=== PATIENT | male | born 1950 | race Caucasian/White ===

== ENCOUNTER 2020-07-14 17:22 | Observation (INO) | payer MEDICARE, OTHER ==
[~2020-07-14] VITALS: Ht 185.4 cm; Wt 116.0 kg
[2020-07-14] MEDS ORDERED: ASPIRIN CHEWABLE 81 MG TABLET. PO ONE (17:45)
--- NOTE | 2020-07-14 17:49 | EKG ---
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
[2020-07-14] MEDS ORDERED: ASPIRIN ENTERIC COATED 81 MG TABLET.DR. PO ONE (17:50)
[2020-07-14 17:57] LABS: BASO # 0.1 x10^3/uL (0.0-0.2); BASO % 1 % (0-3); EOS # 0.2 x10^3/uL (0.0-0.7); EOS % 2 % (0-3); HEMATOCRIT 46.3 % (39.0-53.0); HEMOGLOBIN 15.2 g/dL (13.0-17.5); LYMPH # 2.7 x10^3/uL (1.0-4.8); LYMPH % 34 % (24-48); MEAN CORPUSCULAR HEMOGLOBIN 31 pg (25-35); MEAN CORPUSCULAR HGB CONC 33 g/dL (31-37); MEAN CORPUSCULAR VOLUME 93 fL (79-100); MONO # 0.5 x10^3/uL (0.0-1.1); MONO % 6 % (0-9); NEUT # 4.5 x10^3uL (1.8-7.7); NEUT % 56 % (31-73); PLATELET COUNT 194 x10^3/uL (140-400); RED BLOOD COUNT 4.99 x10^6/uL (4.30-5.70); RED CELL DISTRIBUTION WIDTH 13.7 % (11.5-14.5)
--- NOTE | 2020-07-14 17:57 | RAD ---
AP chest. HISTORY: Chest pain AP view was taken of the chest. Heart is normal in size with evidence of prior bypass. There are no a cute infiltrates. There is no effusion. IMPRESSION: 1. No acute chest disease. Electronically signed by: Kennedy Hernandez MD (07/14/2020 5:55 PM) [facility]
[2020-07-14 18:07] LABS: GFR 73.7; POTASSIUM 3.7 mmol/L (3.5-5.1)
--- NOTE | 2020-07-14 18:12 | PHYS DOC ---
General Adult EDM: Chief Complaint: CHEST PAIN HPI: HPI: Patient is a 70-year-old male who presents with chest pain that started at 5 PM tonight. Patient describes pain as left-sided, stabbing,radiating to his back. Patient states he was sitting working on his computer when the pain started. Patient reports taking 1 nitro with a little bit of relief. Patient has a history of bypass, and has had 6 stents. Patient denies shortness of breath, nausea /vomiting, dizziness. (FARZANA SARAH APRN) Review of Systems: Review of Systems: Constitutional: Denies fever or chills Eyes: Denies change in visual acuity HENT: Denies nasal congestion or sore throat Respiratory: Denies cough or shortness of breath Cardiovascular: Denies chest pain or edema GI: Denies abdominal pain, nausea, vomiting, bloody stools or diarrhea : Denies dysuria Musculoskeletal: Denies back pain or joint pain Integument: Denies rash Neurologic: Denies headache, focal weakness or sensory changes Endocrine: Denies polyuria or polydipsia Lymphatic: Denies swollen glands Psychiatric: Denies depression or anxiety (FARZANA SARAH APRN) Current Medications: Current Meds: Current Medications Medications (Trade) Dose Ordered Sig/Brandt Start Time Stop Time Status Last Admin Dose Admin Aspirin (Aspirin Chewable) 324 mg 1X ONCE 07/14/20 17:45 07/14/20 18:00 DC 07/14/20 17:52 324 MG Aspirin (Aspirin Enteric Coated) 81 mg STK-MED ONCE 07/14/20 17:50 07/14/20 17:50 DC (FARZANA SARAH APRN) Allergies: Allergies: Allergies Coded Allergies Type Severity Reaction Last Updated Verified acetaminophen Allergy Unknown 07/14/20 Yes azithromycin Allergy Unknown 07/14/20 Yes chlorpheniramine Allergy Unknown 07/14/20 Yes oxymetazoline Allergy Unknown 07/14/20 Yes pheniramine Allergy Unknown 07/14/20 Yes phenylephrine Allergy Unknown 07/14/20 Yes pseudoephedrine Allergy Unknown 07/14/20 Yes (FARZANA SARAH APRN) Physical Exam: PE: Constitutional: Well developed, well nourished, no acute distress, non-toxic appearance. [] HENT: Normocephalic, atraumatic, bilateral external ears normal, oropharynx moist, no oral exudates, nose normal. [] Eyes: PERRLA, EOMI, conjunctiva normal, no discharge. [] Neck: Normal range of motion, no tenderness, supple, no stridor. [] Cardiovascular:Heart rate regular rhythm, no murmur [] Lungs & Thorax: Bilateral breath sounds clear to auscultation [] Abdomen: Bowel sounds normal, soft, no tenderness, no masses, no pulsatile masses. [] Skin: Warm, dry, no erythema, no rash. [] Back: No tenderness, no CVA tenderness. [] Extremities: No tenderness, no cyanosis, no clubbing, ROM intact, no edema. [] Neurologic: Alert and oriented X 3, normal motor function, normal sensory function, no focal deficits noted. [] Psychologic: Affect normal, judgement normal, mood normal. [] (FARZANA SARAH APRN) Current Patient Data: Labs: Laboratory Tests Test 07/14/20 17:35 Sodium Level 140 mmol/L (136-145) Potassium Level 3.7 mmol/L (3.5-5.1) Chloride Level 103 mmol/L (98-107) Carbon Dioxide Level 27 mmol/L (21-32) Anion Gap 10 (6-14) Blood Urea Nitrogen 17 mg/dL (8-26) Creatinine 1.0 mg/dL (0.7-1.3) Estimated GFR (Cockcroft-Gault) 73.7 BUN/Creatinine Ratio 17 (6-20) Glucose Level 155 mg/dL (70-99) H Calcium Level 9.0 mg/dL (8.5-10.1) Total Bilirubin Pending Aspartate Amino Transferase (AST) Pending Alanine Aminotransferase (ALT) Pending Alkaline Phosphatase Pending NF-Bkj-U-Type Natriuretic Peptide Pending Total Protein Pending Albumin Pending Albumin/Globulin Ratio Pending (FARZANA SARAH APRN) EKG: EKG: Sinus rhythm. Heart rate 65 bpm. EKG read at 1800 (FARZANA SARAH APRN) Radiology/Procedures: Radiology/Procedures: []AP chest. HISTORY: Chest pain AP view was taken of the chest. Heart is normal in size with evidence of prior bypass. There are no acute infiltrates. There is no effusion. IMPRESSION: 1. No acute chest disease. Electronically signed by: Kennedy Hernandez MD (07/14/2020 5:55 PM) [facility] (FARZANA SARAH APRN) Heart Score: Risk Factors: Risk Factors: DM, Current or recent (<one month) smoker, HTN, HLP, family history of CAD, obesity. Risk Scores: Score 0 - 3: 2.5% MACE over next 6 weeks - Discharge Home Score 4 - 6: 20.3% MACE over next 6 weeks - Admit for Clinical Observation Score 7 - 10: 72.7% MACE over next 6 weeks - Early Invasive Strategies (FARZANA SARAH APRN) Course & Med Decision Making: Course & Med Decision Making Pertinent Labs and Imaging studies reviewed. (See chart for details) [] 70-year-old male who presents with chest pain that started at 5 PM tonight. Patient describes the pain as a left-sided, stabbing pain that goes through to his back. Patient reports taking 1 nitro at home before before coming into the emergency room. Patient did have some relief from pain after taking the nitro. Patient refuses to take any more nitro. "I am nervous it will mask the pain and I wont know I am having it". EKG ordered to rule out MD or cardiac changes. Chest x-ray ordered. 324 of aspirin given. Chest xray shows No acute chest disease. We will admit patient to hospital for observation. Patient agrees with this plan. Patient reporting increase in chest pain. Pain is 7 out of 10. Morphine ordered for pain control. Repeat EKG ordered to rule out acute MD. Repeat EKG shows no acute abnormalities. (FARZANA SARAH APRN) Dragon Disclaimer: Dragon Disclaimer: This electronic medical record was generated, in whole or in part, using a voice recognition dictation system. (FARZANA SARAH APRN) Departure Departure: Referrals: MARCO MANNING (PCP) Attending Signature Attending Signature I have participated in the care of this patient and I have reviewed and agree with all pertinent clinical information above including history, exam, and recommendations. (LUIS YEH MD) Dragon Disclaimer This chart was dictated in whole or in part using Voice Recognition software in a busy, high-work load, and often noisy Emergency Department environment. It may contain unintended and wholly unrecognized errors or omissions. (LUIS YEH MD) FARZANA SARAH APRN Jul 14, 2020 18:12 LUIS YEH MD Jul 15, 2020 18:09
[2020-07-14 18:19] LABS: ALBUMIN 3.5 g/dL (3.4-5.0); TOTAL BILIRUBIN 0.4 mg/dL (0.2-1.0)
[2020-07-14 18:20] LABS: BILIRUBIN,URINE NEG (NEG); CLARITY,URINE CLEAR; COLOR,URINE YELLOW; GLUCOSE,URINE NEG (NEG); NITRITE,URINE NEG (NEG); UROBILINOGEN,URINE 0.2 mg/dL (0.2 mg/dL)
[2020-07-14 18:21] LABS: BACTERIA,URINE 0 /HPF (0-FEW); RBC,URINE RARE /HPF (0-2); SQUAMOUS EPITHELIAL CELL,UR MANY /LPF; WBC,URINE RARE /HPF (0-4)
[2020-07-14] MEDS ORDERED: MORPHINE SULFATE 4 MG/ML DISP.SYRIN. IV ONE (21:15)
--- NOTE | 2020-07-14 21:38 | EKG ---
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
[2020-07-14] MEDS: NITROGLYCERIN SUBLINGUAL 0.4 MG BOTTLE OF 25. SL PRN ×2 (22:33→22:47)
[2020-07-14] MEDS ORDERED: NITROGLYCERIN SUBLINGUAL 0.4 MG BOTTLE OF 25. SL ONE (22:33)
--- NOTE | 2020-07-14 22:42 | NUR ---
The patient, TRINO SIMPSON, 70 y/o, M admitted by MIR WARREN MD, was given written information regarding hospital policies, unit procedures and contact persons. Valuables were checked and VS taken please see chart.
[2020-07-14 22:57] VITALS: BP 128/90
[2020-07-14] MEDS ORDERED: CETI10TA16 PO (23:17)
[2020-07-14] MEDS ORDERED: ASPI-630 PO (23:17)
[2020-07-14] MEDS ORDERED: LACT1CAP29 PO (23:17)
[2020-07-14] MEDS ORDERED: ATOR40TA59 PO (23:17)
[2020-07-14] MEDS ORDERED: METO-239 PO (23:17)
[2020-07-14] MEDS ORDERED: FINA5TAB4 PO (23:17)
[2020-07-14] MEDS ORDERED: TAMS0.4C97 PO (23:17)
[2020-07-14] MEDS ORDERED: CLOP75TA57 PO (23:17)
[2020-07-14] MEDS ORDERED: SAW/1TAB2 PO (23:17)
[2020-07-14] MEDS ORDERED: GLUC-11 PO (23:17)
[2020-07-15] MEDS ORDERED: TAMSULOSIN 0.4 MG CAP.ER.24H. PO SCH
[2020-07-15] MEDS ORDERED: LACTOBACILLUS RHAMNOSUS GG 1 CAPSULE. PO SCH
[2020-07-15] MEDS ORDERED: ATORVASTATIN CALCIUM 20 MG TABLET PO SCH
[2020-07-15] MEDS ORDERED: ASPIRIN CHEWABLE 81 MG TABLET. PO SCH
[2020-07-15] MEDS ORDERED: FINASTERIDE 5 MG TABLET. PO SCH
[2020-07-15] MEDS ORDERED: CLOPIDOGREL BISULFATE 75 MG TABLET PO SCH
[2020-07-15 03:53] VITALS: BP 148/91
[2020-07-15 06:29] VITALS: BP 145/93
[2020-07-15] MEDS: NITROGLYCERIN SUBLINGUAL 0.4 MG BOTTLE OF 25. SL PRN ×2 (07:17→07:59)
[2020-07-15] MEDS ORDERED: MORPHINE SULFATE 2 MG/ML DISP.SYRIN. IV ONE (08:30)
[2020-07-15] MEDS ORDERED: METOPROLOL SUCC 24HR ER 25 MG TAB.ER.24H. PO SCH (09:00)
[2020-07-15] MEDS ORDERED: CETIRIZINE HCL 10 MG TABLET PO SCH (09:00)
--- NOTE | 2020-07-15 09:30 | NUR ---
Nursing note: Pt c/o chest pain rated 7/10 and 8/10 when taking a deep breath. Pt requested nitro. Nitro given x2 with no relief. Dr. Obregon notified and orders received for Morphine 2mg x1. Morphine administered. Pt stated pain dropped down to 6/10. Pt VS stable and pt does not appear to be bothered by the pain. He is currently sitting quietly in his bed watching TV. Will continue to monitor.
--- NOTE | 2020-07-15 10:49 | HP ---
ADMIT DATE: 07/14/2020 ATTENDING PHYSICIAN: Dr. Mir Warren CHIEF COMPLAINT: Chest pressure. HISTORY OF PRESENT ILLNESS: The patient is a 70-year-old gentleman, very active and appears much younger than the stated age. He noticed a new onset of nonexertional chest pain started at 5:00 p.m. on the date of admission. The left sided stabbing radiating to the back. He was sitting work in the computer, he took one nitroglycerin. He has had a longstanding history of coronary artery bypass. He has had 6 stents, most recently 3 years ago, he was in [place], [place], he had a cardiac catheterization and balloon angioplasty and placement of 2 stents at that time. He was admitted and the first set of cardiac enzymes showed no evidence of coronary ischemia. He is admitted for further evaluation. He sees a service parts driver at [facility], Dr. Ebenezer Cho. He denied any recent COVID exposure, nausea, shortness of breath. He denies any nonsteroidal anti-inflammatory use. He does not drink alcohol. He does not smoke. PAST MEDICAL HISTORY: Significant for coronary artery disease with previous multiple stents, coronary artery bypass and graft, degenerative arthritis and hyperlipidemia. CURRENT MEDICATIONS: Include aspirin 81 mg daily, Plavix, Zyrtec, Lipitor, finasteride, glucosamine chondroitin sulfate, lactobacillus, metoprolol, saw palmetto and Flomax 0.4 mg daily. SOCIAL HISTORY: He is a nonsmoker, nondrinker. ALLERGIES: Include ACETAMINOPHEN, ZITHROMAX, CHLORPHENIRAMINE, OXYMETAZOLINE, PHENYLEPHRINE, PSEUDOEPHEDRINE. Exact reaction is unclear, most likely hypertension. FAMILY HISTORY: Noncontributory. REVIEW OF SYSTEMS: The patient is semi-retired. 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 He is , 4 children who are alive and healthy. The rest of detailed review of systems as the patient turned to be negative. PHYSICAL EXAMINATION: GENERAL: When I saw him, this is a pleasant gentleman who appears much younger than the stated age. VITAL SIGNS: Her blood pressure initially was 145/93 mmHg, pulse 71 and regular, temperature 98.3 degrees Fahrenheit, oxygen saturation 96% on room air. HEENT: Head is without trauma. Pupils are reactive. Sclerae nonicteric. Oropharynx is clear. NECK: Supple, no bruits. LUNGS: Actually clear. CARDIOVASCULAR: Irregular heart tones. No gallops. Peripheral pulses are palpable and full. ABDOMEN: Soft, scaphoid, nontender, no organomegaly. Bowel sounds are hypoactive. EXTREMITIES: Showed no cyanosis or edema. NEUROLOGIC: Function focally intact. SKIN: Warm and dry. NEUROLOGIC: Well Driller were symmetrical and intact. PERTINENT LABORATORY AND X-RAY STUDIES: Chest x-ray on admission showed no acute changes. EKG showed some PVCs, but no acute changes identified. PERTINENT LABORATORY STUDIES: The first set of cardiac enzymes were negative for coronary ischemia. Hemoglobin is 15.2 g/dL with white count of 8000. Electrolytes, BUN and creatinine within normal range. Nonfasting blood sugar 150. The first set of cardiac enzymes was nonischemic. ASSESSMENT: 1. A 70-year-old gentleman with atypical chest pain, noncardiac in nature, is admitted for further evaluation. 2. Known history of coronary artery disease with previous multiple stents. 3. Hyperlipidemia. 4. Degenerative arthritis. PLAN: 1. Observation status. 2. Telemetry monitoring. 3. Serial cardiac enzymes. 4. Continue home meds. MIR WARREN MD DR: LOCO/florin JOB#: [id number] / [id number] Mariluz Fregoso MD
--- NOTE | 2020-07-15 10:55 | DS ---
DATE OF DISCHARGE: 07/15/2020 ATTENDING PHYSICIAN: Dr. Mir Warren FINAL DISCHARGE DIAGNOSES: 1. Atypical chest pain, coronary ischemia ruled out. 2. Known coronary artery disease with previous bypass surgery and multiple stents. 3. Hyperlipidemia. 4. Degenerative arthritis. HISTORY AND PHYSICAL: This pleasant 70-year-old gentleman with a known history of coronary artery disease, was admitted with atypical chest pain. He was admitted for evaluation and monitoring and serial cardiac enzymes. He is a nonsmoker, nondrinker, and has been taking his medication. 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 He tells me his last cardiac workup was 3 years ago in [place], [place] with a cardiac catheterization and stents at that time. In the ED, the first set of cardiac enzymes was negative. Chest x-ray was clear. His vital signs were quite stable. PHYSICAL EXAMINATION: Please see the dictated note. PERTINENT LABORATORY AND X-RAY STUDIES: Three sets of cardiac enzymes negative for coronary ischemia. Electrolytes all within normal range. Creatinine 1.0 mg percent, potassium 3.7 mEq. Hemoglobin 15.2 g/dL with white count of 8000. COURSE IN THE HOSPITAL: The patient was admitted. His serial enzymes were entirely negative for coronary ischemia. We continued the home medication. Diet was advanced. He still has some residual chest wall pain, which was reproducible. I offered some prescriptions and pain meds, he declined. I offered to have Cardiology see him, but it will be after the weekend. He will call his regular heat treat technician in the [facility] system to have what I recommend is a nuclear medicine stress test at some time. He understands and has a significant insight and he will accomplish this after the holidays. On the next hospital day, the patient's vital signs were quite stable. His blood pressure was 145/93 mmHg, pulse 71 and regular, temperature 98.3 degrees Fahrenheit, and oxygen saturation 95% on room air. At this time, he is discharged home. There are no changes on his medicine. He will continue his aspirin and Plavix as scheduled. Lipitor 40 mg daily, Zyrtec, finasteride 5 mg daily, glucosamine and chondroitin sulfate, lactobacillus, metoprolol, saw palmetto and Flomax 0.4 mg daily. His prognosis is fair. The patient was then discharged from our hospital in stable condition with explicit instructions and followup care. MIR WARREN MD DR: LOCO/florin JOB#: [id number] / [id number] Mariluz Fregoso MD
[2020-07-15 11:08] VITALS: BP 147/91
--- NOTE | 2020-07-15 11:18 | PDOC2 ---
CONSULT DOS: DATE: 07/15/20 TIME: 11:17 Reason for Consult: Chest pain Referring Physician: Dr. Colvin Chief Complaint Chest pain Source: Chart review, Patient History of Present Illness 70-year-old male with history of coronary artery disease s/p CABG 8 years ago and PCI/stents placement 3 years ago who is currently being followed by [facility] cardiology presented with retrosternal chest pain that he described as sharp and stabbing in nature radiating to back not associated with shortness of breath. He denied any nausea, vomiting, orthopnea/PND, palpitations or syncope. He tried sublingual nitroglycerin at home with only minimal relief. The pain initially was 8/10 severity and is currently at 5/10 severity. Past Medical History Coronary artery disease s/p CABG and PCI/stents thereafter Hypertension Hyperlipidemia Osteoarthritis Past Surgical History Coronary artery bypass surgery Family History Positive for premature coronary disease Social History Patient denied any smoking or drug use and admitted to social intake of alcohol Current Medications Current Medications Aspirin (Aspirin Chewable) 324 mg 1X ONCE PO Last administered on 07/14/20at 17:52; Start 07/14/20 at 17:45; Stop 07/14/20 at 18:00; Status DC Aspirin (Aspirin Enteric Coated) 81 mg STK-MED ONCE PO ; Start 07/14/20 at 17:50; Stop 07/14/20 at 17:50; Status DC Morphine Sulfate (Morphine 4mg Syringe) 4 mg 1X ONCE IV Last administered on 07/14/20at 21:17; Start 07/14/20 at 21:15; Stop 07/14/20 at 22:04; Status DC Nitroglycerin (Nitrostat) 0.4 mg STK-MED ONCE SL ; Start 07/14/20 at 22:33; Stop 07/14/20 at 22:33; Status DC Nitroglycerin (Nitrostat) 0.4 mg PRN Q5MIN PRN SL CHEST PAIN Last administered on 07/15/20at 07:59; Start 07/14/20 at 22:45 Aspirin (Aspirin Chewable) 81 mg HS PO Last administered on 07/14/20at 23:55; Start 07/15/20 at 00:00 Cetirizine HCl (ZyrTEC) 10 mg DAILY PO Last administered on 07/15/20at 10:35; Start 07/15/20 at 09:00 Clopidogrel Bisulfate (Plavix) 75 mg HS PO Last administered on 07/14/20at 23 :55; Start 07/15/20 at 00:00 Finasteride (Proscar) 5 mg HS PO Last administered on 07/14/20at 23:55; Start 07/15/20 at 00:00 Metoprolol Succinate (Toprol Xl) 25 mg DAILY PO Last administered on 07/15/20at 10:44; Start 07/15/20 at 09:00 Tamsulosin HCl (Flomax) 0.4 mg HS PO Last administered on 07/14/20at 23:55; Start 07/15/20 at 00:00 Atorvastatin Calcium (Lipitor) 40 mg QHS PO Last administered on 07/14/20 23:55; Start 07/15/20 at 00:00 Lactobacillus Rhamnosus (Culturelle) 1 cap HS PO Last administered on 07/14/20at 23:55; Start 07/15/20 at 00:00 Morphine Sulfate (Morphine 2mg Syringe) 2 mg 1X ONCE IV Last administered on 07/15/20at 08:37; Start 07/15/20 at 08:30; Stop 07/15/20 at 08:32; Status DC Active Scripts Active Reported Plavix (Clopidogrel Bisulfate) 75 Mg Tablet 75 Mg PO HS Cetirizine Hcl 10 Mg Tablet 10 Mg PO DAILY Atorvastatin Calcium 40 Mg Tablet 40 Mg PO QHS Metoprolol Succinate ( Xl ) (Metoprolol Succinate) 25 Mg Tab.er.24h 25 Mg PO DAILY Finasteride 5 Mg Tablet 5 Mg PO HS Probiotic (Lactobacillus Combo No.10) 1 Each Capsule 1 Each PO HS Flomax (Tamsulosin Hcl) 0.4 Mg Cap.er.24h 0.4 Mg PO HS Prostate Health Caplet (Saw/Vit E/Sod Nena/Lyc/Beta/Pyg) 1 Each Tablet 1 Each PO DAILY Cidaflex Tablet (Glucosamine Hcl/Chondr Davis A Na) 1 Each Tablet 1 Each PO DAILY Aspirin 81 Mg Tab.chew 81 Mg PO HS Allergies: Coded Allergies: acetaminophen (Verified Allergy, Unknown, 07/14/20) azithromycin (Verified Allergy, Unknown, 07/14/20) chlorpheniramine (Verified Allergy, Unknown, 07/14/20) oxymetazoline (Verified Allergy, Unknown, 07/14/20) pheniramine (Verified Allergy, Unknown, 07/14/20) phenylephrine (Verified Allergy, Unknown, 07/14/20) pseudoephedrine (Verified Allergy, Unknown, 07/14/20) PSYCHOLOGICAL ROS: No: Hallucinations Eyes: No: Loss of vision HEENT: No: Epistaxis Respiratory: No: Hemoptysis, Shortness of breath Cardiovascular: yes: Chest Pain Gastrointestinal: No: Vomiting Genitourinary: No: Dysuria Neurological: No: Seizures Skin: No: Rash General: Alert, Oriented X3 HEENT: Atraumatic Lungs: Clear to auscultation Heart: Regular rate Abdomen: Soft Extremities: No edema Neuro: Normal speech Psych/Mental Status: Mood NL VITALS Vital Signs Date Time Temp Pulse Resp B/P (MAP) Pulse Ox O2 Delivery O2 Flow Rate FiO2 07/15/20 11:08 98.5 71 18 147/91 (109) 95 Room Air Labs Laboratory Tests Test 07/14/20 17:35 07/14/20 18:00 07/14/20 19:25 07/14/20 23:35 White Blood Count 8.0 x10^3/uL (4.0-11.0) Red Blood Count 4.99 x10^6/uL (4.30-5.70) Hemoglobin 15.2 g/dL (13.0-17.5) Hematocrit 46.3 % (39.0-53.0) Mean Corpuscular Volume 93 fL (79-100) Mean Corpuscular Hemoglobin 31 pg (25-35) Mean Corpuscular Hemoglobin Concent 33 g/dL (31-37) Red Cell Distribution Width 13.7 % (11.5-14.5) Platelet Count 194 x10^3/uL (140-400) Neutrophils (%) (Auto) 56 % (31-73) Lymphocytes (%) (Auto) 34 % (24-48) Monocytes (%) (Auto) 6 % (0-9) Eosinophils (%) (Auto) 2 % (0-3) Basophils (%) (Auto) 1 % (0-3) Neutrophils # (Auto) 4.5 x10^3uL (1.8-7.7) Lymphocytes # (Auto) 2.7 x10^3/uL (1.0-4.8) Monocytes # (Auto) 0.5 x10^3/uL (0.0-1.1) Eosinophils # (Auto) 0.2 x10^3/uL (0.0-0.7) Basophils # (Auto) 0.1 x10^3/uL (0.0-0.2) Sodium Level 140 mmol/L (136-145) Potassium Level 3.7 mmol/L (3.5-5.1) Chloride Level 103 mmol/L (98-107) Carbon Dioxide Level 27 mmol/L (21-32) Anion Gap 10 (6-14) Blood Urea Nitrogen 17 mg/dL (8-26) Creatinine 1.0 mg/dL (0.7-1.3) Estimated GFR (Cockcroft-Gault) 73.7 BUN/Creatinine Ratio 17 (6-20) Glucose Level 155 mg/dL (70-99) Calcium Level 9.0 mg/dL (8.5-10.1) Total Bilirubin 0.4 mg/dL (0.2-1.0) Aspartate Amino Transf (AST/SGOT) 25 U/L (15-37) Alanine Aminotransferase (ALT/SGPT) 51 U/L (16-63) Alkaline Phosphatase 84 U/L (46-116) Troponin I Quantitative < 0.017 ng/mL (0-0.055) < 0.017 ng/mL (0-0.055) < 0.017 ng/mL (0-0.055) ZP-Bmk-E-Type Natriuretic Peptide 178 pg/mL (0-124) Total Protein 7.0 g/dL (6.4-8.2) Albumin 3.5 g/dL (3.4-5.0) Albumin/Globulin Ratio 1.0 (1.0-1.7) Urine Collection Type Unknown Urine Color Yellow Urine Clarity Clear Urine pH 5.5 Urine Specific [place] 1.025 Urine Protein Neg (NEG-TRACE) Urine Glucose (UA) Neg mg/dL (NEG) Urine Ketones (Stick) Neg mg/dL (NEG) Urine Blood Neg (NEG) Urine Nitrite Neg (NEG) Urine Bilirubin Neg (NEG) Urine Urobilinogen Dipstick 0.2 mg/dL (0.2 mg/dL) Urine Leukocyte Esterase Neg (NEG) Urine RBC Rare /HPF (0-2) Urine WBC Rare /HPF (0-4) Urine Squamous Epithelial Cells Many /LPF Urine Bacteria 0 /HPF (0-FEW) Assessment/Plan 1. Chest pain with atypical features in a patient with known history of coronary artery disease s/p CABG 8 years ago and PCI/stents placement in his grafts according to patient 3 years ago. Chest pain appears to be musculoskeletal since this is reproducible to palpation. Myocardial infarction has been ruled out. Plan outpatient 2D echo and ischemic evaluation with stress test, possibly with primary shipping inspector at [facility]. Continue current secondary prevention measures. 2. Hypertension: Controlled 3. Hyperlipidemia: Continue statin therapy Thank you for your consultation CASPER GUTIERREZ MD Jul 15, 2020 11:17
--- NOTE | 2020-07-15 11:50 | NUR ---
Discharge Note: TRINO SIMPSON ICU Discharge instructions and discharge home medications reviewed with Patient and a copy given. All questions have been answered and understanding verbalized. The following instructions and handouts were given: Discharge packet was given to pt. Instructions given to pt to f/u with laundry tech on Wednesday 07/18. No questions or concerns from pt. Discontinued lines and drains: Peripheral IV intact. IV discontinued, no problems noted. Patient discharged to Home or Self Care. Pt ambulated out of the hospital accompanied by staff.
== END 2020-07-15 11:50 | disposition home or self-care (01) ==
LOC: ER 17:22 → ICU 19:40
PROVIDERS: ADMIT Hospitalist; ATTEND Hospitalist
DX: R07.89 Other chest pain (principal); M19.90 Unspecified osteoarthritis, unspecified site; E78.5 Hyperlipidemia, unspecified; I10 Essential (primary) hypertension; Z79.82 Long term (current) use of aspirin; Z95.1 Presence of aortocoronary bypass graft; Z95.5 Presence of coronary angioplasty implant and graft; Z79.899 Other long term (current) drug therapy; Z79.01 Long term (current) use of anticoagulants
CPT/HCPCS: 36415; 71045; 80053; 81001; 83880; 84484; 85025; 93005; 96374; 96376; 99285; G0378; J2270; G0379